=== PATIENT | female | born 1945 | race Caucasian/White ===

== ENCOUNTER → 2016-09-13 | Outpatient (CLI) | payer OTHER, MEDICARE ==
[~2016-09-13] MED LIST: HYDR10TA52 PO; HYDR20TA3 PO; LEVO88TA3 PO; SIMV10TA2 PO; TRIA0.02 EXT; [UNRECOGNIZED DRUG - CODE] EX
--- NOTE | 2016-09-13 13:54 | MAMMOGRAPHY REPORT ---
UNILATERAL LEFT DIGITAL DIAGNOSTIC MAMMOGRAM TOMOSYNTHESIS WITH CAD: 09/13/2016 CLINICAL HISTORY: 6 Month Follow-up Left. TECHNIQUE: Breast tomosynthesis in addition to standard 2D mammography was performed. Current study was also evaluated with a Computer Aided Detection (CAD) system. Left CC and MLO 2-D and tomosynthes is images and spot magnification left CC and ML views were obtained. COMPARISON: Comparison is made to exams dated: 03/15/2016 mammogram, 03/05/2016 mammogram, 08/13/2013 [facility], 10/06/2007 mammogram, 10/10/2005 mammogram, and 06/03/2003 mammog [facility]. BREAST COMPOSITION: There are scattered areas of fibroglandular density in the left breast. FINDINGS: Spot magnification views of the left breast again demonstrate a small 3 mm cluster of calc ifications in the left upper outer quadrant posteriorly. The calcifications are stable on spot magni fication views dated 03/15/2016. Additionally, some calcifications were seen in this region on the 20 14 exam although it is difficult to make an accurate comparison due to differences in mammographic te chnique. Again, the options of short interval follow-up versus stereotactic biopsy were discussed wi th the patient, and at this time we will do another short interval follow-up. IMPRESSION: ACR-BI-RADS CATEGORY 3: PROBABLY BENIGN Small 3 mm cluster of calcifications in the left upper outer quadrant is stable compared to the 2015 exam. The options of short interval follow-up versus stereotactic biopsy were again discussed w ith the patient, and at this time we will opt for another short interval follow-up which is reasonabl e given the stability. Therefore, recommend bilateral diagnostic tomosynthesis mammograms in 6 month s, to reevaluate the left breast calcifications and for routine mammography of the right breast. The patient has been verbally notified of the results. Approximately 10% of breast cancers are not detected with mammography. A negative mammographic report should not delay biopsy if a clinically suggestive mass is present. Ksenia Woodson M.D. ah/:09/13/2016 10:59:25 Biological Science Aide: Slime OLMSTEAD(Yanira)(M), [facility] letter sent: Follow Up Recommended 3 BI-RADS Code: ACR-BI-RADS Category 3: Probably Benign
== END | disposition home or self-care (01) ==
LOC: C.MAMM 10:27
PROVIDERS: ATTEND Obstetrics & Gynecology
DX: R92.1 Mammographic calcification found on diagnostic imaging of breast (principal)

== ENCOUNTER → 2017-05-23 | Outpatient (CLI) | payer OTHER, MEDICARE ==
--- NOTE | 2017-05-23 14:57 | MAMMOGRAPHY REPORT ---
BILATERAL DIGITAL DIAGNOSTIC MAMMOGRAM TOMOSYNTHESIS WITH CAD: 05/23/2017 CLINICAL HISTORY: Short interval follow-up of left breast calcifications. Due for routine mammograph y of the right breast. TECHNIQUE: Breast tomosynthesis in addition to standard 2D mammography was performed. Current study was also evaluated with a Computer Aided Detection (CAD) system. Bilateral CC and MLO 2-D and tomosy nthesis images and spot magnification left CC and ML views were obtained. COMPARISON: Comparison is made to exams dated: 09/13/2016 mammogram, 03/15/2016 mammogram, 03/05/2016 m ammogram, 08/13/2013 mammogram - [facility], 10/06/2007 mammogram, and 10/10/2005 mammogr am - [facility]. BREAST COMPOSITION: There are scattered areas of fibroglandular density in both breasts. FINDINGS: Spot magnification views of the left breast again demonstrate a small 3 mm cluster of calci fications within the left upper outer quadrant posteriorly. The calcifications are stable on spot ma gnification views dating back to March 2016. Additionally, the calcifications are likely stable d ating back to the August 2013 exam on the MLO view. The calcifications are probably benign given the st ability. The remainder of both breasts are stable compared to prior exams, without suspicious masses, calcific ations, or areas of architectural distortion noted. Bilateral asymmetries and other scattered bilate ral benign-appearing calcifications are not significantly changed. IMPRESSION: ACR-BI-RADS CATEGORY 3: PROBABLY BENIGN Small 3 mm cluster of calcifications within the left upper outer quadrant is stable dating back to March 2016 exam and likely also the 2013 exam. The calcifications are probably benign given the long-term stability. Recommend bilateral diagnostic tomosynthesis mammograms in 12 months to confir m longer stability of the calcifications on spot magnification views and for routine mammography of t he right breast. The patient has been verbally notified of the results. Approximately 10% of breast cancers are not detected with mammography. A negative mammographic report should not delay biopsy if a clinically suggestive mass is present. Ksenia Woodson M.D. /:05/23/2017 10:30:56 Traveling Phlebotomist: Slime OLMSTEAD(R)(M), [facility] letter sent: Follow Up Recommended 3 BI-RADS Code: ACR-BI-RADS Category 3: Probably Benign
== END | disposition home or self-care (01) ==
LOC: C.MAMM 10:03
PROVIDERS: ATTEND Obstetrics & Gynecology
DX: R92.1 Mammographic calcification found on diagnostic imaging of breast (principal)